=== PATIENT | male | born 1945 ===

== ENCOUNTER 2018-02-01 18:13 | Emergency (ER) | payer MEDICAID ==
[2018-02-01 18:13] VITALS: BMI 23.1
[2018-02-01 18:30] VITALS: BP 136/82; PULSE 79; RESP 20; TEMP 98.3; O2SAT 98
--- NOTE | 2018-02-01 18:53 | C.PDOC ---
History Of Present Illness 72 y/o male w/PMhx of GERD presents to ED for evaluation cold sx associated with nasal congestion, runny nose, sore throat, dry cough and hoarse voice gradually developed since yesterday. Pt sts, took Ibuprofen today AM with minimal improvement in throat pain. Otherwise, patient denies high fever, chills , severe headache, dizziness, weakness, neck pain, drooling, dysphagia, dyspnea , chest pain, sob, wheezing, abd. pain, nausea, vomiting , back pain, UTI sx, denies recent travel or known sick contact. Ambulate to Ed for evaluation, not in any apparent distress. Time Seen by Provider: 02/01/18 18:34 Chief Complaint (Nursing): ENT Problem History Per: Patient History/Exam Limitations: None Onset/Duration Of Symptoms: Days Current Symptoms Are (Timing): Still Present Past Medical History Reviewed: Historical Data, Nursing Documentation, Vital Signs Vital Signs: Last Vital Signs Temp 98.3 F 02/01/18 18:29 Pulse 79 02/01/18 18:29 Resp 20 02/01/18 18:29 BP 136/82 02/01/18 18:29 Pulse Ox 98 02/01/18 19:03 - Medical History PMH: Gastritis, Hypercholesterolemia Surgical History: No Surg Hx Family History: States: No Known Family Hx - Social History Hx Tobacco Use: No Hx Alcohol Use: No Hx Substance Use: No - Immunization History Hx Tetanus Toxoid Vaccination: No Hx Influenza Vaccination: No Hx Pneumococcal Vaccination: No Review Of Systems Constitutional: Positive for: Fever. Negative for: Chills ENT: Positive for: Throat Pain Cardiovascular: Negative for: Chest Pain Respiratory: Positive for: Cough. Negative for: Shortness of Breath Gastrointestinal: Negative for: Nausea, Vomiting Skin: Negative for: Rash Physical Exam - Physical Exam Appears: Well, Non-toxic, No Acute Distress Skin: Normal Color, Warm, Dry, No Rash Head: Normacephalic Eye(s): bilateral: PERRL Ear(s): Bilateral: Normal Nose: No Flaring, Discharge (B/L nasal congestion with scant clear rhinorrhea) Oral Mucosa: Moist, No Drooling Tongue: Normal Appearing Lips: Normal Appearing Throat: Erythema (mod B/L), No Exudate, No Drooling, Other (Uvula midline, no edema.) Neck: Trachea Midline, Supple Cardiovascular: Rhythm Regular, No Murmur, No JVD Respiratory: No Decreased Breath Sounds, No Accessory Muscle Use, No Stridor, No Wheezing Gastrointestinal/Abdominal: Soft, No Tenderness, No Distention, No Guarding Back: No CVA Tenderness Extremity: Normal ROM, No Deformity, No Swelling Neurological/Psych: Oriented x3, Normal Speech ED Course And Treatment O2 Sat by Pulse Oximetry: 98 (RA) Pulse Ox Interpretation: Normal Progress Note: On re-eval, pt is afebrile, hemodynamicaly stable. Non-toxic. Tolerate Po well in ED. PulsEOx 98% RA. ENT: exam c/w acute pharyngitis, uvula midline, no edema. Neck: Supple, (-)carotid bruits B/L. Lungs: CTA B/L, BS equal B/L. CVS: (+)S1S2, reg. Abd: soft, NT/ND, (-) guarding, (-) rebound. back: (-) CVA tenderness. neurologicaly intact. Pt has clinical findings c/ w pharyngitis, acute laryngitis. Pt advised on course of ds. ref. to f/u with PMD in 2-3 days for re-eval. return if any new changes. Disposition Counseled Patient/Family Regarding: Diagnosis, Need For Followup, Rx Given - Disposition Referrals: [facility] at [facility] [Outside] Disposition: HOME/ ROUTINE Disposition Time: 18:52 Condition: STABLE Additional Instructions: Encourage fluids Take medication as prescribed Follow up with PMD in 2-3 days for re-evaluation. return to ED if any worsening or new changes. Prescriptions: Azithromycin [Zithromax] 250 mg PO DAILY #5 tab Loratadine [Claritin] 10 mg PO DAILY #20 tab Prednisone [Deltasone] 40 mg PO DAILY #6 tablet Instructions: Laryngitis, Sore Throat in Adults Forms: [facility] (Maltese), Work Excuse Print Language: [place]IZ[place] - Clinical Impression Clinical Impression: Pharyngitis, Laryngitis - PA / CARE MANAGEMENT ASSISTANT / Resident Statement MD/DO has reviewed & agrees with the documentation as recorded. - Scribe Statement The provider has reviewed the documentation as recorded by the Sim Dyson All medical record entries made by the Xaviibharper were at my direction and personally dictated by me. I have reviewed the chart and agree that the record accurately reflects my personal performance of the history, physical exam, medical decision making, and the department course for this patient. I have also personally directed, reviewed, and agree with the discharge instructions and disposition.
== END 2018-02-01 19:30 | disposition home or self-care (01) ==
LOC: C.ER 18:13
DX: J04.0 Acute laryngitis (principal); E78.00 Pure hypercholesterolemia, unspecified